=== PATIENT | female | born 1960 | race Caucasian/White ===

== ENCOUNTER → 2019-07-19 | Outpatient (CLI) | payer MEDICARE | END | disposition home or self-care (01) | LOC: LABWHC1 14:36 | PROVIDERS: ATTEND Nurse Practitioner Family | DX: M79.7 Fibromyalgia (principal) | CPT/HCPCS: 36415; 93005 ==

== ENCOUNTER → 2019-11-02 | Outpatient (CLI) | payer MEDICARE ==
[2019-11-03 02:44] LABS: Hemoglobin A1C 5.6 % (4.0-6.0)
== END | disposition home or self-care (01) ==
LOC: LABWHC1 15:01
PROVIDERS: ATTEND Neurological Surgery
DX: Z01.812 Encounter for preprocedural laboratory examination (principal)
CPT/HCPCS: 36415; 83036

== ENCOUNTER → 2020-02-07 | Outpatient (CLI) | payer MEDICARE ==
[2020-02-08 04:38] LABS: C Reactive Protein 0.8 mg/dL (0.0-0.8)
[2020-02-08 04:39] LABS: Folate, Serum 10.3 ng/mL; Protein, Total 6.4 g/dL (6.2-8.2)
[2020-02-08 04:40] LABS: Anti-DNA, DS unit <1.0 IU/mL; DNA Double-Stranded NEGATIVE (NEGATIVE); Hemoglobin A1C 5.6 % (4.0-6.0)
[2020-02-08 13:20] LABS: Albumin 3.64 g/dL (3.80-4.90); Gamma Globulin 0.72 g/dL (0.70-1.50)
[2020-02-09 09:55] LABS: Angiotensin-1 Converting Enz. 30 U/L (8-52)
[2020-02-09 14:34] LABS: C-ANCA <1:20 Titer (<1:20)
== END | disposition home or self-care (01) ==
LOC: LABWHC1 13:58
PROVIDERS: ATTEND Psychiatry & Neurology Neurology
DX: G60.8 Other hereditary and idiopathic neuropathies (principal)
CPT/HCPCS: 36415; 82164; 82607; 82746; 83036; 84165; 84207; 84443; 85652; 86038; 86140; 86225; 86235; 86255; 86334; 86618

== ENCOUNTER 2020-07-22 09:28 | Emergency (ER) | payer MEDICARE ==
[2020-07-22] MEDS ORDERED: ACETAMINOPHEN TAB 500 MG TAB PO STA (10:14)
[2020-07-22] MEDS ORDERED: PANTOPRAZOLE 40 MG/10 ML VIAL IVP STA (10:15)
[2020-07-22] MEDS ORDERED: SODIUM CHLORIDE 0.9% 500 ML 500 ML IV STA (10:15)
--- NOTE | 2020-07-22 10:20 | ED ---
General Adult HPI - General Chief complaint: GI Bleed Stated complaint: Fever/Headach/Cough/Blood in stool Time Seen by Provider: 07/22/20 10:03 Source: patient, RN notes reviewed Mode of arrival: wheelchair Limitations: no limitations - History of Present Illness Initial comments: 60-year-old female with a past medical history of asthma presents to the emergency room for a chief complaint of GI bleed. Patient has had rectal bleeding as 2 episodes this morning. States it was bright red. Patient reports that she has never had this before. Patient does not have diarrhea. Patient has had a cough sore throat and headache and fever for the past several days as well. Patient denies any significant past medical history. Patient states she had a normal colonoscopy a few years ago.Patient has no other complaints at this time including shortness of breath, chest pain, nausea or vomiting, headache, or visual changes. - Related Data Home Medications Medication Instructions Recorded Confirmed Cyclobenzaprine [Flexeril] 10 mg PO TID 03/24/14 07/22/20 Gabapentin [Neurontin] 800 mg PO TID 03/24/14 07/22/20 Acetaminophen/Diphenhydramine 4 tab PO HS 07/22/20 07/22/20 [Tylenol PM 500-25mg] Albuterol Sulfate [Proair Hfa] 2 puff INHALATION RT-QID PRN 07/22/20 07/22/20 DULoxetine HCL [Cymbalta] 60 mg PO BID 07/22/20 07/22/20 Allergies Allergy/AdvReac Type Severity Reaction Status Date / Time codeine Allergy Itching Verified 07/22/20 11:22 walnut Allergy Swelling Verified 07/22/20 11:24 Review of Systems ROS Statement: Those systems with pertinent positive or pertinent negative responses have been documented in the HPI. ROS Other: All systems not noted in ROS Statement are negative. Past Medical History Past Medical History: Asthma Additional Past Medical History / Comment(s): Patient had lap band History of Any Multi-Drug Resistant Organisms: None Reported Past Surgical History: Hernia Repair, Hysterectomy, Orthopedic Surgery, Tonsillectomy Additional Past Surgical History / Comment(s): LAP BAND, PORT, BACK, BILATERAL THUMB SURGERY, BLADDER SUSPENSION Past Psychological History: No Psychological Hx Reported Smoking Status: Current every day smoker Past Alcohol Use History: None Reported Past Drug Use History: None Reported General Exam Limitations: no limitations General appearance: alert, in no apparent distress Head exam: Present: atraumatic, normocephalic, normal inspection Eye exam: Present: normal appearance, PERRL, EOMI. Absent: scleral icterus, conjunctival injection, periorbital swelling ENT exam: Present: normal exam, mucous membranes moist Neck exam: Present: normal inspection, full ROM. Absent: tenderness, meningismus, lymphadenopathy Respiratory exam: Present: normal lung sounds bilaterally. Absent: respiratory distress, wheezes, rales, rhonchi, stridor Cardiovascular Exam: Present: regular rate, normal rhythm, normal heart sounds. Absent: systolic murmur, diastolic murmur, rubs, gallop, clicks GI/Abdominal exam: Present: soft, normal bowel sounds. Absent: distended, tenderness, guarding, rebound, rigid Course Vital Signs 07/22/20 07/22/20 07/22/20 09:50 10:32 11:00 Temperature 101.1 F H Pulse Rate 111 H 109 H 94 Respiratory 20 19 16 Rate Blood Pressure 126/76 97/61 O2 Sat by Pulse 97 97 97 Oximetry 07/22/20 12:00 Temperature 99.0 F Pulse Rate 77 Respiratory 18 Rate Blood Pressure 132/84 O2 Sat by Pulse 94 L Oximetry Medical Decision Making - Medical Decision Making Vitals are stable. Patient does have a fever of 101. She has had viral symptoms for a few days now. Covid testing is positive. Chest x-ray shows no pneumonias. Fever did improve with antipyretics. No shortness of breath. Patient has also had rectal bleeding which is the reason she came in today. This has happened twice now this morning. Minimal lower abdominal tenderness. CBC is unremarkable. White count is normal. Hemoglobin is stable. CMP unremarkable. A CT abdomen and pelvis shows a moderately long segment of nons pecific fish infectious versus inflammatory acute colitis. There is diverticulosis however no diverticulitis. No abscess or free air. Patient will be treated with Augmentin given possibility of bacterial infection however discuss that this is more likely to be inflammatory. Patient does not take blood thinners. I did strongly recommend patient stay in the hospital however she refuses stating she is taking care of her ex-. She is aware that she has high risk of transmitting the virus to him. She is agreeable to returning if she develop shortness of breath or worsening bleeding or lightheadedness. - Lab Data Result diagrams: 07/22/20 10:26 07/22/20 10:26 Lab Results 07/22/20 07/22/20 07/22/20 Range/Units 10:26 10: 10:26 WBC 6.6 (3.8-10.6) k/uL RBC 4.66 (3.80-5.40) m/uL Hgb 14.3 (11.4-16.0) gm/dL Hct 41.6 (34.0-46.0) % MCV 89.2 (80.0-100.0) fL MCH 30.8 (25.0-35.0) pg MCHC 34.5 (31.0-37.0) g/dL RDW 13.8 (11.5-15.5) % Plt Count 182 (150-450) k/uL MPV 7.8 Neutrophils % 68 % Lymphocytes % 20 % Monocytes % 6 % Eosinophils % 2 % Basophils % 3 % Neutrophils # 4.5 (1.3-7.7) k/uL Lymphocytes # 1.3 (1.0-4.8) k/uL Monocytes # 0.4 (0-1.0) k/uL Eosinophils # 0.1 (0-0.7) k/uL Basophils # 0.2 (0-0.2) k/uL PT 10.5 (9.0-12.0) sec INR 1.0 (<1.2) APTT 28.2 (22.0-30.0) sec Sodium (137-145) mmol/L Potassium (3.5-5.1) mmol/L Chloride (98-107) mmol/L Carbon Dioxide (22-30) mmol/L Anion Gap mmol/L BUN (7-17) mg/dL Creatinine (0.52-1.04) mg/dL Est GFR (CKD-EPI)AfAm (>60 ml/min/1.73 sqM) Est GFR (CKD-EPI)NonAf (>60 ml/min/1.73 sqM) Glucose (74-99) mg/dL Plasma Lactic Acid Mohamud (0.7-2.0) mmol/L Calcium (8.4-10.2) mg/dL Magnesium (1.6-2.3) mg/dL Total Bilirubin (0.2-1.3) mg/dL AST (14-36) U/L ALT (4-34) U/L Alkaline Phosphatase (38-126) U/L Lactate Dehydrogenase (313-618) U/L C-Reactive Protein (<10.0) mg/L Total Protein (6.3-8.2) g/dL Albumin (3.5-5.0) g/dL Lipase (23-300) U/L Stool Occult Blood Positive H (Negative) Coronavirus (PCR) (Not Detectd) Influenza Type A RNA (Not Detectd) Influenza Type B (PCR) (Not Detectd) Blood Type Blood Type Recheck Bld Type Recheck Status Antibody Screen Spec Expiration Date 07/22/20 07/22/20 07/22/20 Range/Units 10:26 10:26 10:26 WBC (3.8-10.6) k/uL RBC (3.80-5.40) m/uL Hgb (11.4-16.0) gm/dL Hct (34.0-46.0) % MCV (80.0-100.0) fL MCH (25.0-35.0) pg MCHC (31.0-37.0) g/dL RDW (11.5-15.5) % Plt Count (150-450) k/uL MPV Neutrophils % % Lymphocytes % % Monocytes % % Eosinophils % % Basophils % % Neutrophils # (1.3-7.7) k/uL Lymphocytes # (1.0-4.8) k/uL Monocytes # (0-1.0) k/uL Eosinophils # (0-0.7) k/uL Basophils # (0-0.2) k/uL PT (9.0-12.0) sec INR (<1.2) APTT (22.0-30.0) sec Sodium 136 L (137-145) mmol/L Potassium 3.3 L (3.5-5.1) mmol/L Chloride 106 (98-107) mmol/L Carbon Dioxide 22 (22-30) mmol/L Anion Gap 8 mmol/L BUN 12 (7-17) mg/dL Creatinine 0.78 (0.52-1.04) mg/dL Est GFR (CKD-EPI)AfAm >90 (>60 ml/min/1.73 sqM) Est GFR (CKD-EPI)NonAf 84 (>60 ml/min/1.73 sqM) Glucose 110 H (74-99) mg/dL Plasma Lactic Acid Mohamud 1.2 (0.7-2.0) mmol/L Calcium 9.3 (8.4-10.2) mg/dL Magnesium 1.8 (1.6-2.3) mg/dL Total Bilirubin 0.4 (0.2-1.3) mg/dL AST 26 (14-36) U/L ALT 17 (4-34) U/L Alkaline Phosphatase 74 (38-126) U/L Lactate Dehydrogenase 512 (313-618) U/L C-Reactive Protein 29.0 H (<10.0) mg/L Total Protein 6.6 (6.3-8.2) g/dL Albumin 3.8 (3.5-5.0) g/dL Lipase 44 (23-300) U/L Stool Occult Blood (Negative) Coronavirus (PCR) (Not Detectd) Influenza Type A RNA Not Detected (Not Detectd) Influenza Type B (PCR) Not Detected (Not Detectd) Blood Type Blood Type Recheck Bld Type Recheck Status Antibody Screen Spec Expiration Date 07/22/20 07/22/20 Range/Units 10:26 10:30 WBC (3.8-10.6) k/uL RBC (3.80-5.40) m/uL Hgb (11.4-16.0) gm/dL Hct (34.0-46.0) % MCV (80.0-100.0) fL MCH (25.0-35.0) pg MCHC (31.0-37.0) g/dL RDW (11.5-15.5) % Plt Count (150-450) k/uL MPV Neutrophils % % Lymphocytes % % Monocytes % % Eosinophils % % Basophils % % Neutrophils # (1.3-7.7) k/uL Lymphocytes # (1.0-4.8) k/uL Monocytes # (0-1.0) k/uL Eosinophils # (0-0.7) k/uL Basophils # (0-0.2) k/uL PT (9.0-12.0) sec INR (<1.2) APTT (22.0-30.0) sec Sodium (137-145) mmol/L Potassium (3.5-5.1) mmol/L Chloride (98-107) mmol/L Carbon Dioxide (22-30) mmol/L Anion Gap mmol/L BUN (7-17) mg/dL Creatinine (0.52-1.04) mg/dL Est GFR (CKD-EPI)AfAm (>60 ml/min/1.73 sqM) Est GFR (CKD-EPI)NonAf (>60 ml/min/1.73 sqM) Glucose (74-99) mg/dL Plasma Lactic Acid Mohamud (0.7-2.0) mmol/L Calcium (8.4-10.2) mg/dL Magnesium (1.6-2.3) mg/dL Total Bilirubin (0.2-1.3) mg/dL AST (14-36) U/L ALT (4-34) U/L Alkaline Phosphatase (38-126) U/L Lactate Dehydrogenase (313-618) U/L C-Reactive Protein (<10.0) mg/L Total Protein (6.3-8.2) g/dL Albumin (3.5-5.0) g/dL Lipase (23-300) U/L Stool Occult Blood (Negative) Coronavirus (PCR) Detected A (Not Detectd) Influenza Type A RNA (Not Detectd) Influenza Type B (PCR) (Not Detectd) Blood Type O Positive Blood Type Recheck O Pos Bld Type Recheck Status No Antibody Screen NEGATIVE Spec Expiration Date 07/25/2020 - 2329 Disposition Clinical Impression: Hematochezia, COVID-19 Disposition: HOME SELF-CARE Condition: Fair Instructions (If sedation given, give patient instructions): Gastrointestinal Bleeding (ED), Upper Respiratory Infection (ED) Additional Instructions: Please quarantine as you are Covid positive. Please follow-up with your doctor in one to 2 days. He may require a colonoscopy. If you have worsening symptoms you need to return to the emergency room. This could include worsening fevers, weakness, worsening bleeding, or shortness of breath. Is patient prescribed a controlled substance at d/c from ED?: No Referrals: Link Duran DO [Primary Care Provider] - 1-2 days Time of Disposition: 14:00
[2020-07-22 10:49] LABS: Basophils # (A) 0.2 k/uL (0-0.2); Basophils % (A) 3 %; Eosinophils # (A) 0.1 k/uL (0-0.7); Eosinophils % (A) 2 %; HCT 41.6 % (34.0-46.0); HGB 14.3 gm/dL (11.4-16.0); Lymphocytes # (A) 1.3 k/uL (1.0-4.8); Lymphocytes % (A) 20 %; MCH 30.8 pg (25.0-35.0); MCHC 34.5 g/dL (31.0-37.0); MCV 89.2 fL (80.0-100.0); Mean Platelet Volume 7.8; Monocytes # (A) 0.4 k/uL (0-1.0); Monocytes % (A) 6 %; Neutrophils # (A) 4.5 k/uL (1.3-7.7); Neutrophils % (A) 68 %; Platelet Count 182 k/uL (150-450); RBC 4.66 m/uL (3.80-5.40); RDW 13.8 % (11.5-15.5); WBC 6.6 k/uL (3.8-10.6)
--- NOTE | 2020-07-22 10:49 | XR ---
EXAMINATION TYPE: XR chest 1V portable DATE OF EXAM: 07/22/2020 HISTORY: Shortness of breath. COMPARISON: None. TECHNIQUE: Single view of the chest is submitted. FINDINGS: Demonstrated are scattered senescent parenchymal change. There is no evidence for focal infiltrate. The heart is stable. Hilar and mediastinal structures are within normal limits. Degenerative changes are seen of the dorsal spine. IMPRESSION: 1. Chronic changes without evidence for acute pulmonary disease.
[2020-07-22 11:00] LABS: Partial Thromboplastin Time 28.2 sec (22.0-30.0); Prothrombin Time 10.5 sec (9.0-12.0)
[2020-07-22 11:01] LABS: ALT 17 U/L (4-34); AST 26 U/L (14-36); African American GFR (CKD) >90 (>60 ml/min/1.73 sqM); Albumin 3.8 g/dL (3.5-5.0); Alkaline Phosphatase 74 U/L (38-126); Anion Gap 8 mmol/L; Blood Urea Nitrogen 12 mg/dL (7-17); Calcium 9.3 mg/dL (8.4-10.2); Carbon Dioxide 22 mmol/L (22-30); Chloride 106 mmol/L (98-107); Glucose 110 mg/dL (74-99); LDH 512 U/L (313-618); Lipase 44 U/L (23-300); Magnesium 1.8 mg/dL (1.6-2.3); Non-African American GFR(CKD) 84 (>60 ml/min/1.73 sqM); Potassium 3.3 mmol/L (3.5-5.1); Sodium 136 mmol/L (137-145); Total Bilirubin 0.4 mg/dL (0.2-1.3); Total Protein 6.6 g/dL (6.3-8.2)
--- NOTE | 2020-07-22 13:41 | CT ---
EXAMINATION TYPE: CT abdomen pelvis w con DATE OF EXAM: 07/22/2020 COMPARISON: 03/24/2014 HISTORY: 60-year-old female fever, generalized pain, bloody stool TECHNIQUE: Contiguous axial scanning of the abdomen and pelvis following administration of 100 ml Omn ipaque 300 IV contrast. Coronal and sagittal reconstructions performed. CT DLP: 1169.4 mGycm Automated exposure control for dose reduction was used. FINDINGS: The patient was claustrophobic and declined waiting for the 3 minute delayed scan. Heart normal size without pericardial effusion. Lung bases clear without pleural effusion. Liver enlarged at 21.2 cm with suggestion of mild fatty infiltration. No biliary ductal dilatation. P ortal venous system is patent. 1.8 cm diverticulum of the second portion of the duodenum projecting into the pancreatic head region. Adrenal glands, kidneys, and pancreas appear within normal limits. Spleen upper limits of normal in size at 13.2 cm. Lap band device is redemonstrated. There is similar slightly horizontal orientation of the left and. Anterior abdominal wall mesh repair. No dilated small bowel, free fluid, or free air. No mesenteric or retroperitoneal lymphadenopathy. Nonspecific moderate circumferential wall thickening involving the lower descending and proximal sigm oid colon. There is some mild diverticular change within the proximal sigmoid but the inflammatory th ickening involves portions of the colon without significant diverticular change. Associated pericolon ic fat stranding. Bladder nondistended. Uterus surgically absent. Multiple pelvic phlebolith. No abnormal fluid collect ion in the pelvis or pelvic lymphadenopathy. Neither ovary is visualized. Bones: Status post L4-S1 posterior and interbody fusion changes. Mild superior end plate deformity of T11 was present back in 2013 as well. IMPRESSION: 1. MODERATELY LONG SEGMENT OF NONSPECIFIC INFECTIOUS/INFLAMMATORY ACUTE COLITIS INVOLVING THE LOWER D ESCENDING AND PROXIMAL SIGMOID COLON. 2. PROXIMAL TO MID SIGMOID DIVERTICULOSIS. INFLAMED COLON INVOLVES SOME PORTIONS THAT ARE NOT INVOLVE D WITH DIVERTICULA. 3. NO EVIDENCE FOR ABSCESS OR FREE AIR. 4. HEPATOMEGALY (21.2 CM) WITH AT LEAST MILD HEPATIC STEATOSIS.
[2020-07-22 14:31] VITALS: BP 132/65; PULSE 86; RESP 20; TEMP 98.4
[2020-07-22 18:32] LABS: Ferritin 64.2 ng/mL (10.0-291.0)
== END 2020-07-22 14:15 | disposition home or self-care (01) ==
LOC: EC 09:28
DX: K92.1 Melena (principal); U07.1 COVID-19; R10.30 Lower abdominal pain, unspecified; F17.200 Nicotine dependence, unspecified, uncomplicated; J45.909 Unspecified asthma, uncomplicated; Z88.5 Allergy status to narcotic agent; Z91.018 Allergy to other foods
CPT/HCPCS: 36415; 93005; 86900; 86901; 80053; 82728; 83605; 83615; 83690; 83735; 85025; 85610; 85730; 86850; 86140; 82272; 87502; 84145; 87635; 71045; 74177; 99285; 96374; 96361; C9113; Q9967

== ENCOUNTER → 2021-08-13 | Outpatient (CLI) | payer MEDICARE ==
--- NOTE | 2021-08-15 12:05 | MM ---
Reason for exam: screening (asymptomatic). Last mammogram was performed 19 years and 9 months ago. History: Family history of breast cancer. Physical Findings: A clinical breast exam by your physician is recommended on an annual basis and results should be correlated with mammographic findings. MG 3D Screening Mammo W/Cad Bilateral CC and MLO view(s) were taken. No prior studies available for comparison. There are scattered fibroglandular densities. There is no discrete abnormality. ASSESSMENT: Negative, BI-RAD 1 RECOMMENDATION: Routine screening mammogram of both breasts in 1 year.
== END | disposition home or self-care (01) ==
LOC: RADMAMWWP 11:54
PROVIDERS: ATTEND Family Medicine
DX: Z12.31 Encounter for screening mammogram for malignant neoplasm of breast (principal); Z80.3 Family history of malignant neoplasm of breast
CPT/HCPCS: 77063; 77067

== ENCOUNTER → 2022-01-28 | Outpatient (CLI) | payer MEDICARE ==
--- NOTE | 2022-01-28 07:48 | MR ---
EXAMINATION TYPE: MR lumbar spine wo con DATE OF EXAM: 01/28/2022 COMPARISON: CT abdomen and pelvis July 22, 2020 HISTORY: Lumbar stenosis, RT hip pain TECHNIQUE: Multiplanar, multisequence imaging of the lumbar spine is performed without IV contrast. FINDINGS: Sagittal images of the lumbar spine show vertebral body heights and alignment to appear sat isfactory. Multilevel disc desiccation is present. There is artifact from metallic disc material at t he lumbosacral junction. There is artifact from bilateral posterior interpedicular rods and screws at L4-L5 level. Moderate disc space narrowing L4-L5 level is present. Mild to moderate anterior spurri ng L3-L4 level with annular tear. The conus medullaris is normal in position and signal ending inferi or T12 level. Prominent Schmorl node in the superior T11 endplate. Posterior disc herniation herniati ons are mildly effacing the anterior thecal sac sagittal image 6 at T10-T11 and T11-T12 levels. Axial images at T12-L1 level appears within normal limits. Axial images at L1-L2 level appear within normal limits. Axial images at L2-L3 level show mild broad disc bulge and mild facet arthropathy bilaterally. Minima l effacement of anterior thecal sac. Axial images at L3-L4 level show mild to moderate broad disc bulge with annular tear along with mild facet arthropathy and ligamentum flavum hypertrophy effacing the anterior and posterior lateral theca l sac. Patent bilateral neural foramina. Axial images at L4-L5 level show bilateral laminectomy defects and spinous process resection. There i s artifact from posterior fusion hardware. Spinal canal is preserved. Right-sided neural foramina alisa ws mild to moderate anterior-inferior neural foraminal narrowing. Axial images at L5-S1 level show mild bilateral facet arthropathy. Spinal canal is preserved. Artifac t from calculus material is present. The neural foramina are patent bilaterally. Paraspinal muscle bulk is preserved. IMPRESSION: Postsurgical change lower lumbar spine redemonstrated. [id number] multilevel degene rative changes are noted as detailed above.
--- NOTE | 2022-01-28 11:34 | XR ---
EXAMINATION TYPE: XR Hip RT and AP Pelvis DATE OF EXAM: 01/28/2022 COMPARISON: None HISTORY: Right hip pain TECHNIQUE: Right hip is examined in 2 views and supplemented with an AP pelvis FINDINGS: Postsurgical changes are in the lower lumbar spine. Sacroiliac joints and symphysis pubis a ppear normal Femoral heads articulate with the acetabulum. Minimal joint space narrowing may be present. No acute fracture or dislocation is evident. Follow-up can be performed as clinically indicated IMPRESSION: 1. No acute osseous abnormality right hip
--- NOTE | 2022-01-29 03:22 | MR ---
EXAMINATION TYPE: MR hip RT wo con DATE OF EXAM: 01/28/2022 COMPARISON: None HISTORY: Lumbar stenosis, RT hip pain Multiplanar multi echo imaging of the pelvis and right hip without contrast. Bony pelvis appears intact. No evidence of a fracture. The proximal femurs and hip joints are intact. No evidence of hip dysplasia. No sign of avascular necrosis. There is slight increased soft tissue f luid signal at the greater trochanter of the right femur compared to the left. This could be some min imal edema. No evidence of any significant hip joint effusion. Bladder distends smoothly. No sign of a pelvic mass. No evidence of free fluid in the pelvis sacroiliac joints are intact. There is metal a rtifact from lower lumbar spine fusion surgery. IMPRESSION: Slight increased signal at the greater trochanter of the right femur and adjacent soft tissue could r elate to some mild trochanteric bursitis. Otherwise negative exam. No fracture. No evidence of any si gnificant arthritic disease.
== END | disposition home or self-care (01) ==
LOC: RADMRIMAIN 06:00
PROVIDERS: ATTEND Neurological Surgery
DX: M47.817 Spondylosis without myelopathy or radiculopathy, lumbosacral region (principal); M25.551 Pain in right hip; M51.24 Other intervertebral disc displacement, thoracic region; M51.86 Other intervertebral disc disorders, lumbar region
CPT/HCPCS: 72148; 73502

== ENCOUNTER → 2022-09-09 | Outpatient (CLI) | payer MEDICARE | END | disposition home or self-care (01) | LOC: RADCTMAIN 14:59 | PROVIDERS: ATTEND Family Medicine | DX: Z53.9 Procedure and treatment not carried out, unspecified reason (principal) ==

== ENCOUNTER → 2022-09-16 | Outpatient (CLI) | payer MEDICARE ==
[2022-09-16 14:03] LABS: Partial Thromboplastin Time 24.8 sec (22.0-30.0); Prothrombin Time 10.1 sec (9.0-12.0)
[2022-09-16 19:12] LABS: Basophils % (A) 1.2 %; Eosinophils # (A) 0.22 X 10*3/uL (0.04-0.35); Eosinophils % (A) 2.7 %; HGB 12.1 g/dL (12.0-15.0); Immature Grans, Automated 0.4 %; Lymphocytes # (A) 3.12 X 10*3/uL (0.90-5.00); MCH 28.9 pg (27.0-32.0); MCV 93.1 fL (80.0-97.0); Mean Platelet Volume 11.4 fL (9.5-12.2); Monocytes % (A) 7.3 %; NRBC Per 100 WBC 0 /100 WBCS (0.0-0.0); Neutrophils # (A) 4.13 X 10*3/uL (1.80-7.70); Neutrophils % (A) 50.4 %; Platelet Count 300 X 10*3/uL (140-440); RBC 4.19 X 10*6/uL (4.10-5.20); RDW 14.1 % (11.5-14.5)
[2022-09-16 23:10] LABS: Appearance,Urine Clear (Clear); Bilirubin,Urine Negative (Negative); Blood,Urine Negative (Negative); Color,Urine Yellow (Yellow); Ketones,Urine Negative (Negative); Nitrite,Urine Negative (Negative); Specific Gravity,Urine 1.013 (1.001-1.030); Urobilinogen,Urine 0.2 (0.2,1.0)
[2022-09-17 10:21] LABS: ALT 15 U/L (8-44); AST 15 U/L (13-35); African American GFR (CKD) 96.8 (60.0-200.0); Albumin 4.2 g/dL (3.8-4.9); Alkaline Phosphatase 102 U/L (41-126); BUN/Creat Ratio 16.56 Ratio (12.00-20.00); Blood Urea Nitrogen 12.8 mg/dL (9.0-27.0); Calcium 9.8 mg/dL (8.7-10.3); Carbon Dioxide 29.7 mmol/L (20.0-27.5); Chloride 105 mmol/L (96-109); Globulin 2.1 g/dL (1.6-3.3); Glucose 100 mg/dL (70-110); Non-African American GFR(CKD) 83.5 (60.0-200.0); Potassium 5.1 mmol/L (3.5-5.5); Sodium 143 mmol/L (135-145); Total Bilirubin <0.15 mg/dL (0.30-1.20); Total Protein 6.3 g/dL (6.2-8.2)
== END | disposition home or self-care (01) ==
LOC: LABWHC1 12:57
PROVIDERS: ATTEND Neurological Surgery
DX: Z01.810 Encounter for preprocedural cardiovascular examination (principal)
CPT/HCPCS: 36415; 80053; 81003; 83036; 85025; 85610; 85730; 86850; 86900; 86901; 87070

== ENCOUNTER → 2022-09-25 | Outpatient (CLI) | payer MEDICARE ==
--- NOTE | 2022-09-25 14:46 | CT ---
EXAMINATION: CT ABDOMEN AND PELVIS WITH IV CONTRAST DATE OF EXAMINATION: 09/25/2022. COMPARISON: 07/22/2020. INDICATION: Abdominal pain. PROCEDURE: Axial CT of the abdomen and pelvis was performed with contrast and sagittal and coronal reformatted images were performed. CT dose lowering techniques were used, to include: automated expos ure control, adjustment for patient size, and/or use of iterative reconstruction. 100 mL of Isovue-30 0 was given intravenously. FINDINGS: LOWER CHEST : The visualized lung bases are clear. There are no pleural or pericardial effusions. ABDOMEN: Liver and Biliary system: Normal. Adrenal glands: Normal. Kidneys and ureters: Normal. Spleen: Normal. Pancreas: Normal. Gallbladder: Normal. Lymph nodes, Peritoneum and mesentery: There is no mesenteric or retroperitoneal lymphadenopathy. Gastrointestinal tract: There are no dilated loops of bowel or free intraperitoneal air. The appe ndix is normal. There is mild to moderate sigmoid colonic diverticulosis without evidence of divertic ulitis. There is moderate sigmoid colonic diverticulosis without evidence of diverticulitis. Aorta/IVC: There is mild vascular calcification throughout the abdominal aorta without evidence of aneurysmal dilation or dissection. IVC normal. Abdominal wall: Abdominal wall mesh repair is noted laparoscopic band port is seen within the left a bdomen. PELVIS: Fluid: There is no free fluid in the pelvis. Lymph Nodes: There is no pelvic or inguinal lymphadenopathy.. Urinary bladder: Seizure spinal fusion changes between L4 and L5 are noted with disc spacer prosthes is within the space of L5-S1.. BONES: There are no osseous destructive lesions.. ADDITIONAL SIGNIFICANT FINDINGS: None. IMPRESSION: 1. No acute process seen within the abdomen or pelvis. 2. Diverticulosis without evidence of diverticulitis. 3. Laparoscopic band appears positioned slightly low below the gastroesophageal junction with a porti on of the stomach above the band.
== END | disposition home or self-care (01) ==
LOC: RADCTMAIN 12:31
PROVIDERS: ATTEND Family Medicine
DX: K57.30 Diverticulosis of large intestine without perforation or abscess without bleeding (principal); R10.84 Generalized abdominal pain
CPT/HCPCS: 74177; Q9967

== ENCOUNTER 2023-12-11 00:08 | Emergency (ER) | payer MEDICARE ==
[2023-12-11] MEDS: LIDOCAINE 4% PATCH TOPICAL ONE (01:40)
--- NOTE | 2023-12-11 01:40 | XR ---
EXAM: XR Lumbosacral Spine, 2 or 3 Views CLINICAL HISTORY: Back pain TECHNIQUE: Frontal and lateral views of the lumbar spine and sacrum. COMPARISON: No relevant prior studies available. FINDINGS: Vertebrae: Posterior fusion noted at L4-L5 level with bilateral pedicle screws and paraspinal rods. The vertebral body heights are maintained. There is straightening of the normal lumbar lordosis. No acute fracture. Sacrum/coccyx: Unremarkable as visualized. No acute fracture. Disc spaces: Interbody cage noted at the L5-S1 disc. There is mild disc space narrowing noted at L2-3 and L3-L4. Soft tissues: Unremarkable. Tubes, lines and devices: Intrathecal spinal stimulator leads are noted entering the central canal at T12-L1 and extending superiorly. The tip is not well delineated. IMPRESSION: 1. No acute osseous traumatic injury involving the lumbar spine. Straightening of the normal lumbar lordosis is presumed related to positioning or muscle spasm. 2. Mild disc space narrowing noted at L2-3 and L3-L4. Interbody cage noted at L5-S1. Posterior fusion at L4-L5.
[2023-12-11] MEDS: ACETAMINOPHEN TAB 325 MG TAB PO STA (01:41)
[2023-12-11] MEDS: IBUPROFEN 600 MG TAB PO STA (01:41)
[2023-12-11 01:48] VITALS: BP 139/77; PULSE 97; RESP 18; TEMP 97.9
--- NOTE | 2023-12-11 02:20 | ED ---
Back Pain HPI - General Chief Complaint: Back Pain/Injury Stated Complaint: back pain Time Seen by Provider: 12/11/23 00:50 Source: patient Limitations: no limitations - History of Present Illness Initial Comments: 63-year-old female presenting with chief complaint of back pain. Patient is complaining mainly of left lower back pain. She was picking up sticks in the yard today and when she twisted she felt a pop in her lower back. She has had no other injuries or trauma. Patient has history of multiple back surgeries and want to make sure that her hardware was still in place. She does admit to some radiation of pain down the leg. No loss of bowel or bladder control or saddle paresthesia. No nausea, vomiting, fever, chills. No urinary symptoms. - Related Data Home Medications Medication Instructions Recorded Confirmed Cyclobenzaprine [Flexeril] 10 mg PO TID 03/24/14 07/22/20 Gabapentin [Neurontin] 800 mg PO TID 03/24/14 07/22/20 Acetaminophen/Diphenhydramine 4 tab PO HS 07/22/20 07/22/20 [Tylenol PM 500-25mg] Albuterol Sulfate [Proair Hfa] 2 puff INHALATION RT-QID PRN 07/22/20 07/22/20 DULoxetine HCL [Cymbalta] 60 mg PO BID 07/22/20 07/22/20 Allergies Allergy/AdvReac Type Severity Reaction Status Date / Time codeine Allergy Itching Verified 12/11/23 00:37 walnut Allergy Swelling Verified 12/11/23 00:37 Review of Systems ROS Statement: Those systems with pertinent positive or pertinent negative responses have been documented in the HPI. ROS Other: All systems not noted in ROS Statement are negative. Past Medical History Past Medical History: Asthma Additional Past Medical History / Comment(s): Patient had lap band History of Any Multi-Drug Resistant Organisms: None Reported Past Surgical History: Hernia Repair, Hysterectomy, Tonsillectomy Additional Past Surgical History / Comment(s): LAP BAND, PORT, BACK, BILATERAL THUMB SURGERY, BLADDER SUSPENSION, spinal cord stimulator, spinal fusion 2020 Past Psychological History: No Psychological Hx Reported Smoking Status: Current every day smoker Past Alcohol Use History: None Reported Past Drug Use History: None Reported General Exam Limitations: no limitations General appearance: alert, in no apparent distress Head exam: Present: atraumatic, normocephalic Eye exam: Present: normal appearance, EOMI Neck exam: Present: normal inspection. Absent: meningismus Respiratory exam: Absent: respiratory distress Cardiovascular Exam: Present: regular rate Back exam: Present: normal inspection, paraspinal tenderness Neurological exam: Present: alert, oriented X3 Psychiatric exam: Present: normal affect, normal mood Skin exam: Present: warm, dry Course Vital Signs 12/11/23 00:34 Temperature 97.9 F Pulse Rate 97 Respiratory 18 Rate Blood Pressure 139/77 O2 Sat by Pulse 98 Oximetry Medical Decision Making - Medical Decision Making Was pt. sent in by a medical professional or institution (, PA, WORKFORCE PLANNING ANALYST, urgent care, hospital, or skilled nursing...) When possible be specific @ -No Did you speak to anyone other than the patient for history (EMS, parent, family, police, friend...)? What history was obtained from this source @ -No Did you review nursing and triage notes (agree or disagree)? Why? @ -I reviewed and agree with nursing and triage notes Were old charts reviewed (outside hosp., previous admission, EMS record, old EKG, old radiological studies, urgent care reports/EKG's, skilled nursing records)? Report findings @ -No old charts were reviewed Differential Diagnosis (chest pain, altered mental status, abdominal pain women, abdominal pain men, vaginal bleeding, weakness, fever, dyspnea, syncope, headache, dizziness, GI bleed, back pain, seizure, CVA, palpatations, mental health, musculoskeletal)? @ - MDM Differential Back Pain: Strain, zoster, cauda equina syndrome, epidural abscess, vertebral osteomyelitis, discitis, fracture, subluxation, disc herniation, DJD, spinal stenosis, dissection, AAA, pancreatitis, peptic ulcer disease, pyelonephritis, kidney stone this is not meant to be an all-inclusive list. EKG interpreted by me (3pts min.). @ -As above X-rays interpreted by me (1pt min.). @ -X-ray shows no acute osseous traumatic injury involving the lumbar spine. Straightening of the normal lumbar lordosis is presumed related to positioning or muscle spasm. Mild disc space narrowing noted at L2-3 and L3-L4. Interbody cage noted at L5-S1. Posterior fusion at L4-L5 CT interpreted by me (1pt min.). @ -None done U/S interpreted by me (1pt. min.). @ -None done What testing was considered but not performed or refused? (CT, X-rays, U/S, l abs)? Why? @ -None What meds were considered but not given or refused? Why? @ -I offered the patient pain medication multiple times and she declined Did you discuss the management of the patient with other professionals (professionals i.e. , PA, WORKFORCE PLANNING ANALYST, lab, RT, psych nurse, social media campaign manager, instrumental music teacher, teacher, chief investment officer, field case manager)? Give summary @ -No Was smoking cessation discussed for >3mins.? @ -No Was critical care preformed (if so, how long)? @ -No Were there social determinants of health that impacted care today? How? (Homelessness, low income, unemployed, alcoholism, drug addiction, transportation, low edu. Level, literacy, decrease access to med. care, penitentiary, rehab)? @ -No Was there de-escalation of care discussed even if they declined (Discuss DNR or withdrawal of care, Hospice)? DNR status @ -No What co-morbidities impacted this encounter? (DM, HTN, Smoking, COPD, CAD, Cancer, CVA, ARF, Chemo, Hep., AIDS, mental health diagnosis, sleep apnea, morbid obesity)? @ -None Was patient admitted / discharged? Hospital course, mention meds given and route, prescriptions, significant lab abnormalities, going to OR and other pertinent info. @ -63-year-old female presenting with chief complaint of lower back pain. No red flag symptoms. History of multiple back surgeries. On physical exam she does have paraspinal muscle tenderness. X-ray shows no acute osseous abnor mality. Patient is educated on the findings. She was offered pain medication multiple times and declined. She was seen ambulating throughout the department. Patient eloped from the emergency department prior to getting any discharge paperwork. She should follow-up with her PCP and report back to ER with any new or worsening symptoms. I discussed this case with my attending Dr. Mancilla Undiagnosed new problem with uncertain prognosis? @ -No Drug Therapy requiring intensive monitoring for toxicity (Heparin, Nitro, Insulin, Cardizem)? @ -No Were any procedures done? @ -No Diagnosis/symptom? @ -Lumbar strain Acute, or Chronic, or Acute on Chronic? @ -Acute Uncomplicated (without systemic symptoms) or Complicated (systemic symptoms)? @ -Uncomplicated Side effects of treatment? @ -No Exacerbation, Progression, or Severe Exacerbation? @ -No Poses a threat to life or bodily function? How? (Chest pain, [place], [place], pneumonia, PE, COPD, DKA, ARF, appy, cholecystitis, CVA, Diverticulitis, Homicidal, Suicidal, threat to staff... and all critical care pts) @ -Low likelihood Disposition Clinical Impression: Strain of lumbar region Disposition: HOME SELF-CARE Condition: Good Instructions (If sedation given, give patient instructions): Acute Low Back Pain (ED) Additional Instructions: Follow-up with PCP. Report back to ER with any new or worsening symptoms. Is patient prescribed a controlled substance at d/c from ED?: No Referrals: Link Duran DO [Primary Care Provider] - 1-2 days Time of Disposition: 02:26
[2023-12-11] MEDS: HYDROmorphone 1 MG/ML 1 ML SYRINGE IM STA (02:37)
== END 2023-12-11 02:37 | disposition home or self-care (01) ==
LOC: EC 00:08
DX: S39.012A Strain of muscle, fascia and tendon of lower back, initial encounter (principal); M48.061 Spinal stenosis, lumbar region without neurogenic claudication; F17.200 Nicotine dependence, unspecified, uncomplicated; Z88.5 Allergy status to narcotic agent; Z91.018 Allergy to other foods; X50.1XXA Overexertion from prolonged static or awkward postures, initial encounter; Y92.096 Garden or yard of other non-institutional residence as the place of occurrence of the external cause
CPT/HCPCS: 72100; 99283

== ENCOUNTER → 2024-01-21 | Outpatient (CLI) | payer MEDICARE ==
--- NOTE | 2024-02-01 06:38 | CT ---
EXAMINATION TYPE: CT lumbar spine wo con DATE OF EXAM: 01/21/2024 2:06 PM COMPARISON: Lumbar spine x-ray December 11, 2023 HISTORY: low back pain x3 months hx of back sxs CT DLP: 1636.6 mGycm Automated exposure control for dose reduction was used. Unenhanced CT of the lumbar spine was performed. Bone and soft tissue window settings are submitted as well as coronal and sagittal reconstructions. There are 5 lumbar-type vertebrae identified. Lumbar spine shows stable and satisfactory alignment. P osterior interpedicular rods and screws transfix L4-L5 level bilaterally. Metallic disc cage or mater ial at the L5-S1 level is seen. There is a posterior lower thoracic spinal stimulator partially image d. Vertebral body heights are maintained. There is moderate disc space narrowing at L4-L5 level. Ther e are laminectomy defects with spinous process resection at L4-L5 level axial image 77. No obvious la rge disc herniation is seen. Spinal canal is grossly preserved. Surgical clips surrounding the stomac h are noted. IMPRESSION: No acute findings are seen.
== END | disposition home or self-care (01) ==
LOC: RADCTMAIN 13:41
PROVIDERS: ATTEND Neurological Surgery
DX: M96.1 Postlaminectomy syndrome, not elsewhere classified (principal); M54.50 Low back pain, unspecified
CPT/HCPCS: 72131

== ENCOUNTER → 2024-05-05 | Outpatient (CLI) | payer MEDICARE ==
--- NOTE | 2024-05-07 11:35 | MM ---
Reason for Exam: Screening (asymptomatic). Last mammogram was performed 2 year(s) and 9 month(s) ago. Patient History: Menarche at age 12. First Full-Term at age 20. Left ovary removed at age 36. Right ovary removed at age 37. Hysterectomy at age 36. Patient has history of breast feeding. Maternal grandmother had breast cancer at or over age 50. Maternal aunt (SUNNI) had breast cancer at or over age 50. Maternal aunt (FRITZ) had breast cancer at or over age 50. Maternal aunt (ARJOAN) had breast cancer at or over age 50. Maternal aunt (MERRITT) had breast cancer at or over age 50. Maternal cousin (ZAIN) had breast cancer at or over age 50. Maternal cousin (TATIANNA) had breast cancer at or over age 50. Maternal cousin (HEATHER) had breast cancer at or over age 50. Risk Values: Mira 5 year model risk: 1.2%. NCI Lifetime model risk: 5.5%. Prior Study Comparison: 11/15/2001 Bilateral Screening Mammogram, [facility]. 08/13/2021 Bilateral Screening Mammogram, [facility]. Tissue Density: The breasts are almost entirely fatty. Findings: Analyzed By CAD. Right breast: There is no suspicious group of microcalcifications or new suspicious mass. Left breast: There is no suspicious group of microcalcifications or new suspicious mass. Overall Assessment: Negative, BI-RAD 1 Management: Screening Mammogram of both breasts in [address] [facility] will attempt to contact patient to return for supplemental views and ultrasound if indicated. Patient should continue monthly self-breast exams. A clinical breast exam by your physician is recommended on an annual basis. This exam should not preclude additional follow-up of suspicious palpable abnormalities. Note on Mira scores and lifetime risk: 1. A Mira score greater than 3% is considered moderate risk. If this is the case, consider specialist referral to assess eligibility for a risk reducing agent. 2. If overall lifetime risk for the development of breast cancer is 20% or higher, the patient may qualify for future screening with alternating mammogram and breast MRI. Electronically signed and approved by: Shyam Charles DO
== END | disposition home or self-care (01) ==
LOC: RADMAMWWP 16:32
PROVIDERS: ATTEND Family Medicine
DX: Z12.31 Encounter for screening mammogram for malignant neoplasm of breast
CPT/HCPCS: 77067